=== PATIENT | female | born 1940 ===

== ENCOUNTER 2017-12-31 18:26 | Observation (INO) | payer MEDICARE ==
[~2017-12-31] VITALS: Ht 160 cm; Wt 54.4 kg
[2017-12-31] MEDS ORDERED: GLYCOLAX527 GM PO (18:35)
[2017-12-31] MEDS ORDERED: COLACE100 MG PO (18:35)
[2017-12-31] MEDS ORDERED: PROBIOTIC1 EAC1 PO (18:36)
[2017-12-31] MEDS ORDERED: LYRICA75 MG PO (18:36)
[2017-12-31] MEDS ORDERED: ULTRAM50 MG PO (18:37)
[2017-12-31] MEDS ORDERED: K-DUR20 MEQ PO (18:37)
[2017-12-31] MEDS ORDERED: XARELTO20 MG PO (18:37)
[2017-12-31 18:41] VITALS: BP 136/82
[2017-12-31 18:52] LABS: BASOPHILS 0.6 % (0-2); EOSINOPHILS 3.8 % (0-7); HEMATOCRIT 37.9 % (36.0-48.0); HEMOGLOBIN 12.7 g/dL (12-16); IMMATURE GRANULOCYTES 0.2 % (0-5); LYMPHOCYTES 35.9 % (15-50); MCH 30.9 pg (26.0-34.0); MCHC 33.5 g/dL (31.0-37.0); MCV 92.2 fL (80.0-100.0); MONOCYTES 5.6 % (2-11); NEUTROPHILS 53.9 % (40-80); PLATELET COUNT 298 10x3/uL (130-400); RBC 4.11 10x6/uL (4.00-5.40); RDW 13.3 % (11.5-14.5); WBC 6.6 10x3/uL (4.8-10.8)
[2017-12-31 19:13] LABS: INR 3.29 (0.85-1.17); PROTIME 32.7 SECONDS (11.6-15.0)
[2017-12-31 19:14] LABS: APTT 88.7 SECONDS (22.8-39.4)
[2017-12-31 19:19] LABS: ALKALINE PHOSPHATASE 92 U/L (46-116); ALT (SGPT) 17 U/L (10-68); BILIRUBIN - TOTAL 0.54 mg/dL (0.2-1.3); CALC OSMOLALITY 288 mosm/kg (275-300); CALCIUM 8.8 mg/dL (8.5-10.1); CARBON DIOXIDE 27.5 mmol/L (21.0-32.0); CHLORIDE - SERUM 108 mmol/L (98-107); CREATININE - SERUM 0.7 mg/dL (0.6-1.3); GLUCOSE 146 mg/dL (74-106); POTASSIUM - SERUM 4.5 mmol/L (3.5-5.1); PROTEIN - SERUM 7.2 g/dL (6.4-8.2); SODIUM 144 mmol/L (136-145); UREA NITROGEN 11 mg/dL (7-18); eGFR NON AFRICAN AMERICAN 86 mL/min (90-120)
[2017-12-31 19:51] VITALS: BP 124/66
[2017-12-31 20:50] LABS: APPEARANCE CLEAR (CLEAR); COLOR YELLOW (YELLOW); SPECIFIC GRAVITY 1.015 (1.005-1.020)
[2017-12-31 20:51] LABS: BILIRUBIN NEGATIVE (NEGATIVE); GLUCOSE NEGATIVE (NEGATIVE); KETONE NEGATIVE (NEGATIVE); NITRITE NEGATIVE (NEGATIVE); PROTEIN NEGATIVE (NEGATIVE); UROBILINOGEN NORMAL (NORMAL)
[2017-12-31 20:53] LABS: BACTERIA MODERATE /hpf (NONE SEEN); EPITHELIAL CELLS 0-5 /hpf (0-5); WHITE CELLS - URINE 0-5 /hpf (0-5)
[2017-12-31 22:38] VITALS: BP 121/74; BMI 21.3
[2018-01-01 01:21] VITALS: BP 121/74
[2018-01-01 05:33] LABS: BASOPHILS 0.2 % (0-2); EOSINOPHILS 0.1 % (0-7); HEMATOCRIT 34.6 % (36.0-48.0); HEMOGLOBIN 11.7 g/dL (12-16); IMMATURE GRANULOCYTES 0.3 % (0-5); LYMPHOCYTES 17.7 % (15-50); MCH 30.5 pg (26.0-34.0); MCHC 33.8 g/dL (31.0-37.0); MEAN PLATELET VOLUME 10.4 fL (7.4-10.4); MONOCYTES 3.9 % (2-11); NEUTROPHILS 77.8 % (40-80); PLATELET COUNT 262 10x3/uL (130-400); RBC 3.84 10x6/uL (4.00-5.40); RDW 13.4 % (11.5-14.5)
[2018-01-01 05:34] LABS: MCV 90.1 fL (80.0-100.0)
[2018-01-01 05:46] LABS: INR 1.86 (0.85-1.17); PROTIME 20.9 SECONDS (11.6-15.0)
[2018-01-01 06:28] VITALS: BP 110/56
[2018-01-01 08:00] VITALS: BP 103/43
[2018-01-01 10:30] LABS: % SATURATION 12 % (15-55); IRON 30 ug/dl (35-150); TOTAL IRON BIND CAPACITY 241 ug/dl (260-445); UNSAT IRON BIND CAPACITY 211 ug/dl (150-375)
[2018-01-01 12:30] VITALS: Ht 160 cm; Wt 54.4 kg
[2018-01-01 17:04] VITALS: BP 130/70
[2018-01-01 20:00] VITALS: BP 154/59
[2018-01-02] VITALS: BP 130/63
[2018-01-02 04:00] VITALS: BP 135/59
[2018-01-02 05:31] LABS: BASOPHILS 0.5 % (0-2); EOSINOPHILS 0.1 % (0-7); HEMATOCRIT 33.5 % (36.0-48.0); HEMOGLOBIN 11.1 g/dL (12-16); IMMATURE GRANULOCYTES 0.3 % (0-5); MCH 30.2 pg (26.0-34.0); MCHC 33.1 g/dL (31.0-37.0); MCV 91.3 fL (80.0-100.0); MEAN PLATELET VOLUME 10.1 fL (7.4-10.4); MONOCYTES 5.4 % (2-11); NEUTROPHILS 72.7 % (40-80); PLATELET COUNT 251 10x3/uL (130-400); RBC 3.67 10x6/uL (4.00-5.40); RDW 13.3 % (11.5-14.5)
[2018-01-02 05:42] LABS: WBC 7.8 10x3/uL (4.8-10.8)
[2018-01-02 05:46] LABS: INR 1.36 (0.85-1.17); PROTIME 16.3 SECONDS (11.6-15.0)
[2018-01-02 06:31] LABS: CALCIUM 9.2 mg/dL (8.5-10.1); CARBON DIOXIDE 23.1 mmol/L (21.0-32.0); CHLORIDE - SERUM 108 mmol/L (98-107); CREATININE - SERUM 0.7 mg/dL (0.6-1.3); GLUCOSE 127 mg/dL (74-106); SODIUM 145 mmol/L (136-145); eGFR NON AFRICAN AMERICAN 86 mL/min (90-120)
[2018-01-02 06:32] LABS: CALC OSMOLALITY 294 mosm/kg (275-300); POTASSIUM - SERUM 3.8 mmol/L (3.5-5.1); UREA NITROGEN 25 mg/dL (7-18)
[2018-01-02 08:15] VITALS: BP 113/54
[2018-01-02 08:20] LABS: FOLATE (FOLIC ACID) - SERUM 5.8 ng/mL (>3.0)
[2018-01-02] MEDS ORDERED: LEVAQUIN250 MG PO (08:28)
== END 2018-01-02 12:50 ==
LOC: D.ER 18:26 → D.M3 20:31 → OBSVTIME 20:31 → D.SDCHOLD 01-01 13:48 → D.M3 01-01 13:50
PROVIDERS: Family Medicine; Internal Medicine Nephrology
DX: R04.0 Epistaxis (principal); N39.0 Urinary tract infection, site not specified; Z74.01 Bed confinement status; D68.9 Coagulation defect, unspecified; D64.9 Anemia, unspecified; G62.9 Polyneuropathy, unspecified; K59.09 Other constipation; F03.90 Unspecified dementia, unspecified severity, without behavioral disturbance, psychotic disturbance, mood disturbance, and anxiety; F32.9 Major depressive disorder, single episode, unspecified; Z66 Do not resuscitate